=== PATIENT | female | born 1995 | race Caucasian/White ===

== ENCOUNTER 2018-06-28 12:19 | Outpatient (CLI) | payer OTHER ==
--- NOTE | 2018-06-28 15:03 | ULT ---
THYROID ULTRASOUND: INDICATION: Goiter. FINDINGS: The thyroid is mildly enlarged and mildly heterogeneous. The right lobe measures 4.3 x 2.2 x 2.0 cm and the left lobe measures 3.6 x 1.2 x 1.3 cm. Tiny circumscribed nodule in the superior left lobe measures 3-4 mm. No other mass or nodule. IMPRESSION: Thyroid land is mildly prominent and heterogeneous in echotexture. A tiny hypoechoic nodule in the s uperior left lobe is noted. Suggest 6-month followup. POS: [id number]
== END 2018-06-28 12:20 | disposition home or self-care (01) ==
LOC: BICULT 12:19
PROVIDERS: ATTEND Obstetrics & Gynecology
DX: E07.89 Other specified disorders of thyroid (principal); E04.1 Nontoxic single thyroid nodule
CPT/HCPCS: 76536